=== PATIENT | male | born 1960 | race Two or more races ===

== ENCOUNTER 2016-04-23 11:26 | Emergency (ER) | payer OTHER ==
[~2016-04-23] VITALS: Ht 188 cm; Wt 145.2 kg
[2016-04-23] MEDS ORDERED: CIPRO500 MG PO (13:45)
[2016-04-23] MEDS ORDERED: NAPROXEN500 MG PO (13:46)
[2016-04-23 13:57] VITALS: BP 144/88
== END 2016-04-23 14:04 | disposition home or self-care (01) ==
LOC: EME 11:26
PROC: 3E0234Z Introduction of Serum, Toxoid and Vaccine into Muscle, Percutaneous Approach (ICD-10-PCS; principal; 2016-04-23)
DX: S91.332A Puncture wound without foreign body, left foot, initial encounter (principal); Z23 Encounter for immunization; W45.0XXA Nail entering through skin, initial encounter
CPT/HCPCS: 73630; 99281; 99284

== ENCOUNTER 2016-04-26 20:04 | Emergency (ER) | payer OTHER ==
[~2016-04-26] VITALS: Ht 188 cm; Wt 148.8 kg
[~2016-04-26 20:04] MED LIST: CIPRO500 MG PO; NAPROXEN500 MG PO
[2016-04-26 20:56] LABS: HEMATOCRIT 43.3 % (38.0-50.0); MCV 83.3 FL (86-99); PLATELET COUNT 165 K/uL (156-360); RBC DIS.WIDTH-CV 13.6 % (11.8-14.6); RBC DIS.WIDTH-SD 40.5 % (39-53); WHITE BLOOD COUNT 7.9 K/uL (4.1-10.2)
[2016-04-26 21:07] LABS: CHLORIDE 106 mEq/L (99-109); SODIUM 138 mEq/L (136-147)
[2016-04-26 21:09] LABS: GLUCOSE 172 mg/dL (70-99)
[2016-04-26 21:10] LABS: ANION GAP 9 MEQ/L (2-14)
[2016-04-26 21:13] LABS: GFR ESTIMATE (CALCULATED) > 59 mL/min/
[2016-04-26 21:14] LABS: UREA NITROGEN (BUN) 20 mg/dL (9-23)
[2016-04-26] MEDS ORDERED: KEFLEX500 MG PO (21:19)
[2016-04-26 21:45] VITALS: BP 124/70
== END 2016-04-26 21:47 | disposition home or self-care (01) ==
LOC: EME 20:04
PROVIDERS: Physician Assistant
DX: L03.116 Cellulitis of left lower limb (principal); R73.9 Hyperglycemia, unspecified
CPT/HCPCS: 80048; 85027; 99281; 99284; J0696; J7050

== ENCOUNTER → 2016-05-14 | Outpatient (CLI) | payer OTHER ==
[~2016-05-14] MED LIST changes: +KEFLEX500 MG PO
== END | disposition home or self-care (01) ==
LOC: NUC 14:44
DX: L03.119 Cellulitis of unspecified part of limb (principal); S91.332A Puncture wound without foreign body, left foot, initial encounter
CPT/HCPCS: 78315; 78999; A9503

== ENCOUNTER → 2016-05-26 | Outpatient (CLI) | payer OTHER | END | disposition home or self-care (01) | LOC: PICC 09:34 | DX: M86.9 Osteomyelitis, unspecified (principal) | CPT/HCPCS: 76937 ==

== ENCOUNTER → 2016-08-11 | Outpatient (CLI) | payer OTHER ==
[~2016-08-11] MED LIST changes: +CLARITIN,ALAVAR10 MG PO; +LYRICA75 MG PO
== END | disposition home or self-care (01) ==
LOC: PICC 12:52
DX: M86.672 Other chronic osteomyelitis, left ankle and foot (principal)
CPT/HCPCS: 76937